=== PATIENT | female | born 1985 | race African-American/Black ===

== ENCOUNTER 2019-01-28 09:40 | Emergency (ER) | payer OTHER ==
[2019-01-28 11:16] VITALS: BP 115/71
--- NOTE | 2019-01-28 12:06 | UC ---
Complaint Female HPI - HPI Summary HPI Summary: 33 yo female presents with urinary frequency and cloudy urine intermittently for the last 2 weeks. She saw her PCP and was told there was no infection, but she continues to have symptoms. Today her symptoms became more intense. She has been drinking cranberry juice with no relief. Denies fever, chills, abdominal pain, n/v, flank pain - History Of Current Complaint Chief Complaint: UCGU Stated Complaint: URINARY COMPLAINT Time Seen by Provider: 01/28/19 11:52 Hx Obtained From: Patient Hx Last Menstrual Period: pt has IUD - 01/06/19 Onset/Duration: Gradual Onset Severity Initially: Mild Severity Currently: Mild Pain Intensity: 3 Pain Scale Used: 0-10 Numeric - Allergies/Home Medications Allergies/Adverse Reactions: Allergies Allergy/AdvReac Type Severity Reaction Status Date / Time acetaminophen [From Vicodin] Allergy Nausea And Verified 01/28/19 11:17 Vomiting hydrocodone [From Vicodin] Allergy Nausea And Verified 01/28/19 11:17 Vomiting Home Medications: Home Medications Glycopyrrolate 1 tab PO DAILY 01/28/19 [History Confirmed 01/28/19] Lysine HCl [l-Lysine] 1 tab PO DAILY 01/28/19 [History Confirmed 01/28/19] PMH/Surg Hx/FS Hx/Imm Hx - Additional Past Medical History Additional PMH: None - Surgical History Surgical History: None - Family History Known Family History: Positive: Non-Contributory - Social History Occupation: Employed Full-time Lives: With Family Alcohol Use: Rare Substance Use Type: None Smoking Status (MU): Never Smoked Tobacco Review of Systems All Other Systems Reviewed And Are Negative: Yes Constitutional: Positive: Negative Skin: Positive: Negative Respiratory: Positive: Negative Cardiovascular: Positive: Negative Genitourinary: Positive: Frequency, Other - odor urine Neurological: Positive: Negative Psychological: Positive: Negative Physical Exam - Summary Physical Exam Summary: GENERAL: NAD. WDWN. No pain distress. SKIN: No rashes, sores, lesions, or open wounds. NECK: Supple. Nontender. No lymphadenopathy. CHEST: CTAB. No r/r/w. No accessory muscle use. Breathing comfortably and in no distress. CV: RRR. Without m/r/g. Pulses intact. Cap refill <2seconds ABDOMEN: Soft. NTTP. No distention or guarding. No CVA tenderness. Bowel sounds present NEURO: Alert. PSYCH: Age appropriate behavior. Triage Information Reviewed: Yes Vital Signs: Initial Vital Signs Temp 97.5 F 01/28/19 11:08 Pulse 74 01/28/19 11:08 Resp 16 01/28/19 11:08 BP 115/71 01/28/19 11:08 Pulse Ox 100 01/28/19 11:08 Laboratory Tests 01/28/19 11:54 POC Urine Color Yellow POC Urine Clarity Clear POC Urine pH 8.5 POC Ur Specif [place] 1.015 POC Urine Protein Trace A POC Ur Glucose (UA) Negative POC Urine Ketones Negative POC Urine Blood 3+ A POC Urine Nitrite Positive A POC Urine Bilirubin Negative POC Urine Urobilinogen 0.2 POC U Leukocyte Esteras 3+ A Vital Signs Reviewed: Yes Complaint Female Dx - Course Course Of Treatment: UA positive. Will treat with macrobid and send her urine for culture. - Differential Dx/Diagnosis Provider Diagnosis: UTI (urinary tract infection) Discharge - Sign-Out/Discharge Documenting (check all that apply): Patient Departure All imaging exams completed and their final reports reviewed: No Studies - Discharge Plan Condition: Stable Disposition: HOME Prescriptions: Fluconazole 150 MG TAB* [Diflucan 150 MG TAB*] 150 mg PO ONCE #3 tablet Nitrofurantoin Monohyd/M-Cryst [Macrobid 100 mg Capsule] 100 mg PO BID #10 cap Patient Education Materials: Urinary Tract Infection in Women (ED) Referrals: Non Staff,Doctor [Primary Care Provider] - Additional Instructions: If you develop a fever, shortness of breath, chest pain, new or worsening symptoms - please call your PCP or go to the ED immediately. - Billing Disposition and Condition Condition: STABLE Disposition: Home
== END 2019-01-28 12:23 | disposition home or self-care (01) ==
LOC: UCCORT 09:40
DX: N39.0 Urinary tract infection, site not specified (principal)
CPT/HCPCS: 81003; 87077; 87086; 87186; 99202; G0463